=== PATIENT | female | born 1995 | race Caucasian/White ===

== ENCOUNTER → 2020-07-20 14:31 | Outpatient (CLI) | payer BC, SELFPAY ==
[2020-07-20 12:39] VITALS: BMI 31.5
[2020-07-20 15:01] LABS: Absolute Lymphocyte Count 2.34 X10^3/uL (0.83-4.51); Absolute Neutrophil Count 7.1 X10^3/uL (2.0-7.7); Basophil# 0.05 X10^3/uL; Basophil% 0.5 % (0-1); Eosinophil# 0.09 X10^3/uL; Eosinophils% 0.9 % (0-5); Hematocrit 35.8 % (37-47); Hemoglobin 11.7 g/dL (12.0-15.0); Lymphocyte # 2.34 X10^3/ul (4.0); Lymphocyte % 22.5 % (19-41); Mean Corp Hgb Conc 32.7 g/dL (32-36); Mean Corpuscular Hgb 29.4 pg (27.0-32.0); Mean Corpuscular Volume 89.9 fL (81-99); Mean Platelet Vol. 10.3 fl (6.2-12.0); Monocyte# 0.81 X10^3/uL; Monocyte% 7.8 % (0-10); NRBC Flagged by Analyzer 0 % (0-5); Neutrophil # 7.06 X10^3/uL (2.7-7.7); Neutrophil % 67.8 % (47-70); Platelet Count 311 K/mm3 (150-450); RBC Distribution Width CV 13.2 % (11.6-14.6); RBC Distribution Width SD 44.1 fl (35.1-43.9); Red Blood Count 3.98 M/mm3 (4.2-5.4); White Blood Count 10.4 K/mm3 (4.4-11.0)
[2020-07-20 15:24] LABS: NATERA MAILED SPECIMEN
[2020-07-20 16:08] LABS: HIV - WCH Non-Reactive (Nonreactive); Hepatitis B Surface Antigen Non-Reactive (Nonreactive); Hepatitis C Antibody Non-Reactive (Nonreactive)
[2020-07-20 18:13] LABS: Amphetamine Urine VISTA NEGATIVE (<1000 ng/mL); Barbiturate Urine VISTA NEGATIVE (< 200 ng/mL); Benzodiazepine Urine VISTA NEGATIVE (< 200 ng/mL); Cocaine Urine VISTA NEGATIVE (< 300 ng/mL); Ecstacy Urine VISTA NEGATIVE (< 500 ng/mL); Methadone Urine VISTA NEGATIVE (< 300 ng/mL); PCP Urine VISTA NEGATIVE (< 25 ng/mL); THC Urine VISTA NEGATIVE (< 50 ng/mL); Vista UDS pH Range 6
[2020-07-24 06:07] LABS: Chlamydia By Nucleic Acid AMP Negative (Negative)
[2020-07-24 12:05] LABS: Gonococcus By Nucleic Acid AMP Negative (Negative)
[2020-07-26 02:11] LABS: Rapid Plasmin Reagin (RPR) NONREACTIVE (NONREACTIVE)
[2020-07-26 16:57] LABS: HPV Reflexed? NOT INDICATED
== END ==
PROVIDERS: PCP Family Medicine; Visit Provider Obstetrics & Gynecology
DX: Z34.81 Encounter for supervision of other normal pregnancy, first trimester (principal); Z31.430 Encounter of female for testing for genetic disease carrier status for procreative management
CPT/HCPCS: 36415; 80307; 85025; 86592; 86703; 86803; 86850; 86900; 86901; 87086; 87088; 87340; 87491; 87591; 88175; G0145

== ENCOUNTER → 2020-08-01 09:17 | Outpatient (CLI) | payer BC, SELFPAY ==
[2020-07-20 12:39] VITALS: BMI 31.5
== END ==
PROVIDERS: PCP Family Medicine; Visit Provider Family Medicine
DX: Z20.828 Contact with and (suspected) exposure to other viral communicable diseases (principal)
CPT/HCPCS: 87635; U0003

== ENCOUNTER 2020-10-11 11:44 | Outpatient (CLI) | payer BC, SELFPAY ==
[2020-09-26 14:36] VITALS: BMI 31.7
[2020-10-11 12:05] VITALS: BP 130/61; PULSE 80; TEMP 37.1; O2SAT 99
[2020-10-11 12:06] VITALS: BMI 32.6
[2020-10-11 12:19] LABS: Bacteria 0 SEEN /hpf (None Seen); Mucous, Urine 0 SEEN /hpf (<or=2+); Red Blood Cells-Urine 0 SEEN /hpf (0-5); Squamous Epithelial Cells - UA 0 SEEN /hpf (5-10); White Blood Cells 0 SEEN /hpf (0-5)
[2020-10-11 12:32] LABS: Color, Urine Yellow (Yellow); Glucose, Dipstick Normal (Normal); Ketone-Dipstick Negative (Negative); Leukocyte Esterase-Dipstick Negative /ul (Negative); Nitrite-Dipstick Negative (Negative); Occult Blood-Urine Negative /ul (Negative); Protein-Dipstick Negative (Negative); Specific Gravity, Urine 1.015 (1.002-1.030); Urine Bilirubin Dipstick Negative (Negative); Urine Clarity Clear (Clear); Urine Urobilinogen Normal (Normal); Urine pH 6.5 (5.0 - 8.0)
--- NOTE | 2020-10-12 11:50 | OB.TRI.PN ---
Progress Notes Date of Service: 10/11/20 Progress Note: Patient presents for triage evaluation secondary to pelvic cramping. Cervix was closed. No evidence of contractions. UA negative. FHT: Moderate variability reactive, isolated variable decel but FHT reassuring for 22 week gestational age [place]: None Contractions Assessment and plan: reassuring maternal and status patient discharged to home to follow-up at next scheduled visit. See problem list details for additional plan information. Laboratory Studies: Laboratory Tests 10/11/20 Range/Units 12:00 Urine Color Yellow (Yellow) Urine Clarity Clear (Clear) Urine pH 6.5 (5.0 - 8.0) Ur Specific [place] 1.015 (1.002-1.030) Urine Protein Negative (Negative) mg/dl Urine Glucose (UA) Normal (Normal) mg/dl Urine Ketones Negative (Negative) mg/dl Urine Occult Blood Negative (Negative) /ul Urine Nitrite Negative (Negative) Urine Bilirubin Negative (Negative) mg/dL Urine Urobilinogen Normal (Normal) mg/dl Ur Leukocyte Esterase Negative (Negative) /ul Urine RBC 0 SEEN (0-5) /hpf Urine WBC 0 SEEN (0-5) /hpf Ur Squamous Epith Cells 0 SEEN (5-10) /hpf Urine Bacteria 0 SEEN (None Seen) /hpf Urine Mucus 0 SEEN (<or=2+) /hpf - Problem List (1) Round ligament pain Status: Acute Multi Select Codes - Urinary/Genital Urinary/Genital CPT Codes: 38209-73 non-stress test Interp
[2020-10-12 23:16] VITALS: BP 131/77; PULSE 86
== END 2020-10-11 13:15 | disposition home or self-care (01) ==
LOC: WPOUT 11:46 → OBT 11:47
PROVIDERS: PCP Family Medicine; Referring Provider Obstetrics & Gynecology; Visit Provider Obstetrics & Gynecology
DX: O26.892 Other specified pregnancy related conditions, second trimester (principal); R10.2 Pelvic and perineal pain; Z3A.22 22 weeks gestation of pregnancy
CPT/HCPCS: 59025; 59050; 81001; 99218; G0378

== ENCOUNTER → 2020-11-22 12:41 | Outpatient (CLI) | payer BC, SELFPAY ==
[2020-10-25 10:50] VITALS: BMI 32.5
[2020-11-22 13:29] LABS: Absolute Lymphocyte Count 1.93 X10^3/uL (0.83-4.51); Absolute Neutrophil Count 7.4 X10^3/uL (2.0-7.7); Basophil# 0.03 X10^3/uL; Basophil% 0.3 % (0-1); Eosinophil# 0.09 X10^3/uL; Eosinophils% 0.9 % (0-5); Hematocrit 33.4 % (37-47); Hemoglobin 10.5 g/dL (12.0-15.0); Lymphocyte # 1.93 X10^3/ul (4.0); Lymphocyte % 18.6 % (19-41); Mean Corp Hgb Conc 31.4 g/dL (32-36); Mean Corpuscular Hgb 29.1 pg (27.0-32.0); Mean Corpuscular Volume 92.5 fL (81-99); Mean Platelet Vol. 10.3 fl (6.2-12.0); Monocyte# 0.82 X10^3/uL; Monocyte% 7.9 % (0-10); NRBC Flagged by Analyzer 0 % (0-5); Neutrophil # 7.43 X10^3/uL (2.7-7.7); Neutrophil % 71.7 % (47-70); Platelet Count 305 K/mm3 (150-450); RBC Distribution Width CV 14.5 % (11.6-14.6); RBC Distribution Width SD 48.6 fl (35.1-43.9); Red Blood Count 3.61 M/mm3 (4.2-5.4); White Blood Count 10.4 K/mm3 (4.4-11.0)
[2020-11-22 13:49] LABS: Glucose Challenge Gest 1H 50g 94 mg/dL (70-140)
== END ==
PROVIDERS: PCP Family Medicine; Referring Provider Obstetrics & Gynecology; Visit Provider Obstetrics & Gynecology
DX: Z34.00 Encounter for supervision of normal first pregnancy, unspecified trimester (principal)
CPT/HCPCS: 36415; 82950; 85025

== ENCOUNTER → 2021-06-10 11:06 | Outpatient (CLI) | payer BC, SELFPAY ==
[2021-06-10 11:41] LABS: Amphetamine Urine VISTA NEGATIVE (<1000 ng/mL); Barbiturate Urine VISTA NEGATIVE (< 200 ng/mL); Benzodiazepine Urine VISTA NEGATIVE (< 200 ng/mL); Cocaine Urine VISTA NEGATIVE (< 300 ng/mL); Ecstacy Urine VISTA NEGATIVE (< 500 ng/mL); Methadone Urine VISTA NEGATIVE (< 300 ng/mL); PCP Urine VISTA NEGATIVE (< 25 ng/mL); THC Urine VISTA NEGATIVE (< 50 ng/mL); Vista UDS pH Range 6
[2021-06-12 03:08] LABS: Chlamydia By Nucleic Acid AMP Negative (Negative)
[2021-06-12 08:54] LABS: Gonococcus By Nucleic Acid AMP Negative (Negative)
== END ==
PROVIDERS: PCP Family Medicine; Referring Provider Obstetrics & Gynecology; Visit Provider Obstetrics & Gynecology
DX: Z34.90 Encounter for supervision of normal pregnancy, unspecified, unspecified trimester (principal)
CPT/HCPCS: 80307; 87086; 87088; 87491; 87591

== ENCOUNTER → 2021-07-10 09:40 | Outpatient (CLI) | payer BC, SELFPAY ==
[2021-07-10 10:13] LABS: Absolute Lymphocyte Count 1.56 X10^3/uL (0.83-4.51); Absolute Neutrophil Count 5.4 X10^3/uL (2.0-7.7); Basophil# 0.04 X10^3/uL; Basophil% 0.5 % (0-1); Eosinophil# 0.08 X10^3/uL; Hematocrit 36.7 % (37-47); Hemoglobin 11.8 g/dL (12.0-15.0); Lymphocyte # 1.56 X10^3/ul (0.83-4.51); Lymphocyte % 20.4 % (19-41); Mean Corp Hgb Conc 32.2 g/dL (32-36); Mean Platelet Vol. 10.2 fl (6.2-12.0); Monocyte# 0.52 X10^3/uL; Monocyte% 6.8 % (0-10); NRBC Flagged by Analyzer 0 % (0-5); Neutrophil # 5.44 X10^3/uL (2.7-7.7); Platelet Count 311 K/mm3 (150-450); RBC Distribution Width CV 18.6 % (11.6-14.6); RBC Distribution Width SD 57.4 fl (35.1-43.9); Red Blood Count 4.37 M/mm3 (4.2-5.4); White Blood Count 7.7 K/mm3 (4.4-11.0)
[2021-07-10 10:33] LABS: Glucose Challenge Gest 1H 50g 125 mg/dL (70-140)
[2021-07-10 10:48] LABS: NATERA MAILED SPECIMEN
[2021-07-10 13:16] LABS: HIV - WCH Non-Reactive (Nonreactive); Hepatitis B Surface Antigen Non-Reactive (Nonreactive); Hepatitis C Antibody Non-Reactive (Nonreactive); Rubella IgG Equiv (Nonreactive); Syphilis Antibodies Non-reactive
== END ==
LOC: LAB 09:41
PROVIDERS: PCP Family Medicine; Referring Provider Obstetrics & Gynecology; Visit Provider Obstetrics & Gynecology
DX: Z34.90 Encounter for supervision of normal pregnancy, unspecified, unspecified trimester (principal)
CPT/HCPCS: 36415; 82950; 85025; 86703; 86762; 86780; 86803; 86850; 86900; 86901; 87340

== ENCOUNTER 2021-10-23 08:59 | Outpatient (CLI) | payer BC, SELFPAY ==
[2021-10-23 09:24] LABS: Absolute Lymphocyte Count 1.65 X10^3/uL (0.83-4.51); Absolute Neutrophil Count 6.5 X10^3/uL (2.0-7.7); Basophil# 0.03 X10^3/uL; Basophil% 0.3 % (0-1); Eosinophil# 0.11 X10^3/uL; Eosinophils% 1.2 % (0-5); Hematocrit 30.8 % (37-47); Hemoglobin 10.1 g/dL (12.0-15.0); Lymphocyte # 1.65 X10^3/ul (0.83-4.51); Lymphocyte % 18.5 % (19-41); Mean Corp Hgb Conc 32.8 g/dL (32-36); Mean Corpuscular Hgb 27.8 pg (27.0-32.0); Mean Corpuscular Volume 84.8 fL (81-99); Mean Platelet Vol. 10.2 fl (6.2-12.0); Monocyte# 0.55 X10^3/uL; Monocyte% 6.2 % (0-10); NRBC Flagged by Analyzer 0 % (0-5); Neutrophil # 6.53 X10^3/uL (2.7-7.7); Neutrophil % 73.2 % (47-70); Platelet Count 315 K/mm3 (150-450); RBC Distribution Width CV 14.6 % (11.6-14.6); RBC Distribution Width SD 45.2 fl (35.1-43.9); Red Blood Count 3.63 M/mm3 (4.2-5.4); White Blood Count 8.9 K/mm3 (4.4-11.0)
[2021-10-23 09:40] LABS: Glucose Challenge Gest 1H 50g 171 mg/dL (70-140)
== END 2021-10-23 23:59 | disposition short-term general hospital (02) ==
LOC: PAVLAB 09:00
PROVIDERS: PCP Family Medicine; Referring Provider Nurse Practitioner Women's Health; Visit Provider Nurse Practitioner Women's Health
DX: Z13.1 Encounter for screening for diabetes mellitus (principal)
CPT/HCPCS: 36415; 82950; 85025

== ENCOUNTER 2021-10-30 06:47 | Outpatient (CLI) | payer BC, SELFPAY ==
[2021-10-30 07:32] LABS: Glucose GTT-Gestation. Fasting 94 mg/dL (<105)
[2021-10-30 08:34] LABS: Glucose GTT-Gestational 1 Hr 193 mg/dL (<190)
[2021-10-30 09:55] LABS: Glucose GTT-Gestational 2 Hr 140 mg/dL (<165)
[2021-10-30 10:48] LABS: Glucose GTT-Gestational 3 Hr 83 L (<145)
== END 2021-10-30 23:59 | disposition home or self-care (01) ==
PROVIDERS: PCP Family Medicine; Referring Provider Nurse Practitioner Women's Health; Visit Provider Nurse Practitioner Women's Health
DX: Z13.1 Encounter for screening for diabetes mellitus (principal)
CPT/HCPCS: 36415; 82951; 82952

== ENCOUNTER 2021-12-04 12:10 | Outpatient (CLI) | payer BC, SELFPAY ==
--- NOTE | 2021-12-04 12:12 | US_ITS ---
STUDY: SECOND AND THIRD TRIMESTER OBSTETRICAL ULTRASOUND REASON FOR EXAM: Female, 26 years old growth LMP: 04/11/2021 TECHNIQUE: Transabdominal TECHNICAL QUALITY: Adequate. PRIOR ULTRASOUND: None. FINDINGS: There is a single intrauterine fetus. The fetus is in a cephalic presentation. There is demonstrated cardiac activity with a heart rate of 131 bpm. There is a normal amniotic fluid volume. The largest amniotic fluid pocket measures 5.3 cm. The amniotic fluid index (DICK) is 9.4 cm. The placenta is anterior in location and is not low lying. There are Grade 0 placental changes. The cervix measures 3.0 cm in length. The adnexal regions are not visualized. BIOMETRY: BPD: 8.9 cm: 36 weeks, 0 days HC: 32.3 cm: 36 weeks, 3 days AC: 36.2 cm: 40 weeks, 0 days FL: 6.8 cm: 35 weeks, 1 days CI: 81.51% FL/BPD: 76.93% FL/HC: 21.23% FL/AC: 18.92% HC/AC: 0.89 age by current US: 36 weeks, 3 days. GABINO by current US: 12/29/2021. Estimated weight: 3465 grams, +/- 520 grams, 99 %. Age by LMP: 33 weeks, 6 days. GABINO by LMP: 01/16/2022. . US/OB Limited With Biometrics IMPRESSION: Living intrauterine of 36 weeks 3 days as described above. age is discordant. age by LMP of 33 weeks 6 days suggestive of incorrect dates or macrosomia. Electronically Signed: Jayden Quan MD at 18:32 EDT ,
== END 2021-12-04 23:59 | disposition home or self-care (01) ==
PROVIDERS: PCP Family Medicine; Referring Provider Obstetrics & Gynecology; Visit Provider Obstetrics & Gynecology
DX: Z34.93 Encounter for supervision of normal pregnancy, unspecified, third trimester (principal); Z3A.36 36 weeks gestation of pregnancy; Z87.59 Personal history of other complications of pregnancy, childbirth and the puerperium
CPT/HCPCS: 76816

== ENCOUNTER 2021-12-19 13:59 | Outpatient (CLI) | payer BC, SELFPAY | END 2021-12-19 23:59 | disposition home or self-care (01) | LOC: LABSPEC 14:00 | PROVIDERS: PCP Family Medicine; Visit Provider Obstetrics & Gynecology | DX: O09.90 Supervision of high risk pregnancy, unspecified, unspecified trimester (principal); Z3A.00 Weeks of gestation of pregnancy not specified | CPT/HCPCS: 87081 ==

== ENCOUNTER 2022-01-02 09:56 | Outpatient (CLI) | payer BC, SELFPAY ==
--- NOTE | 2022-01-02 09:57 | US_ITS ---
STUDY: SECOND AND THIRD TRIMESTER OBSTETRICAL ULTRASOUND - LIMITED REASON FOR EXAM: Female, 26 years old . growth. LMP: 04/11/2021. PRIOR ULTRASOUND: Comparison is made with prior study dated 12/04/2021. TECHNIQUE: Transabdominal TECHNICAL QUALITY: Adequate. FINDINGS: There is a single intrauterine fetus. The fetus is in a cephalic presentation. There is demonstrated cardiac activity with a heart rate of 134 bpm. There is a normal amniotic fluid volume. The largest amniotic fluid pocket measures 3.9 cm. The amniotic fluid index (DICK) is 9.3 cm. The placenta is anterior in location and is not low lying. There are Grade 3 placental changes. BIOMETRY: BPD: 9.06 cm: 36 weeks, 6 days HC: 34.64 cm: 40 weeks, 2 days AC: 40.72 cm: Not on the chart FL: 7.77 cm: 39 weeks, 6 days Age by LMP: 38 weeks, 0 days. GABINO by LMP: 01/16/2027. age by prior US: 40 weeks, 4 days. GABINO by prior US: 12/29/2021. age by current US: 39 weeks, 0 days. GABINO by current US: 01/09/2022. Estimated weight: 4612 grams, +/- 673 grams, 98 percentile. US/OB Limited With Biometrics IMPRESSION: Single live intrauterine gestation with a mean gestational age of 39 weeks. The measurements obtained today following thin the normal expected range. Electronically Signed: Federico Huynh MD at 12:28 EDT ,
== END 2022-01-02 23:59 | disposition home or self-care (01) ==
LOC: US 09:57
PROVIDERS: PCP Family Medicine; Referring Provider Nurse Practitioner Women's Health; Visit Provider Nurse Practitioner Women's Health
DX: Z87.59 Personal history of other complications of pregnancy, childbirth and the puerperium (principal); Z3A.39 39 weeks gestation of pregnancy
CPT/HCPCS: 76816

== ENCOUNTER 2022-01-10 18:30 | Inpatient (IN) | payer BC, SELFPAY ==
[2022-01-10] VITALS (8 sets, daily range): BP systolic 124–143; BP diastolic 70–86; PULSE 69–82; TEMP 36.3–37; O2SAT 97–98; BMI 36.6
[2022-01-10] MEDS: Lactated Ringers 1,000 ML 50 ML IV (19:25)
[2022-01-10 19:58] LABS: Absolute Neutrophil Count 7.9 X10^3/uL (2.0-7.7); Basophil# 0.02 X10^3/uL; Basophil% 0.2 % (0-1); Eosinophil# 0.08 X10^3/uL; Eosinophils% 0.7 % (0-5); Hematocrit 34.8 % (37-47); Hemoglobin 11.5 g/dL (12.0-15.0); Lymphocyte % 18.2 % (19-41); Mean Corpuscular Hgb 28.8 pg (27.0-32.0); Mean Platelet Vol. 10.6 fl (6.2-12.0); Monocyte# 0.95 X10^3/uL; Monocyte% 8.6 % (0-10); NRBC Flagged by Analyzer 0 % (0-5); Neutrophil # 7.89 X10^3/uL (2.7-7.7); Neutrophil % 71.8 % (47-70); Platelet Count 233 K/mm3 (150-450); RBC Distribution Width CV 18.3 % (11.6-14.6); RBC Distribution Width SD 58.8 fl (35.1-43.9)
[2022-01-10] MEDS: Oxytocin 30 units/NS 500 ml 30 UNITS/500 ML IV.SOLN IV (20:13)
--- NOTE | 2022-01-10 20:32 | HP.PCM.OB_ITS ---
HPI - General General Date of Admission: 01/10/22 HPI Narrative ANDIE PARNELL, is a 26y/o F who presents to L&D for IOL due to h/o loss at term with her last . The child was down syndrome. This has been uneventful. Maternal Data Information GABINO Calculator Estimated Delivery Date Method Current WG Current Estimate 01/16/22 LMP (Certain) 39w 1d PFSH PFS Medical History (Updated 01/10/22 @ 19:58 by Gala Arauz) Abnormal glucose affecting Allergies Anemia Anxiety Depression History of ovarian cyst hemorrhage Home Medications multivitamin no.47-iron fum 27 mg-folate no.1 1 mg-dha 300 mg capsule 2 t ab.chew PO DAILY 07/20/20 [History Last Taken 01/10/22] ferrous sulfate 324 mg (65 mg iron) tablet,delayed release 324 mg PO DAILY 11/06/21 [History Last Taken 01/10/22] buspirone 7.5 mg PO BID 01/10/22 [History Last Taken 01/10/22] magnesium 250 mg PO DAILY 01/10/22 [History Last Taken 01/09/22] potassium 99 mg PO DAILY 01/10/22 [History Last Taken 01/09/22] Allergy/AdvReac Type Severity Reaction Status Date / Time No Known Allergies Allergy Verified 01/08/22 08:49 Family History Mother Bowel disease Mitral valve prolapse Severe allergy Thyroid disorder Sister Asthma Anxiety Depression mental disorders Suicide attempt Father Heart disease Severe allergy Grandmother Asthma Bowel disease Respiratory disease Grandfather Cancer CVA (cerebral vascular accident) Thyroid disorder Uncle Thyroid disorder mental disorders Social History adopted: No household members: family housing: house current occupational status: employed current occupation: [employer] pets and animals: Yes Smoking Status: Never smoker second hand exposure: No alcohol intake: never substance use type: does not use seatbelt use: always do you feel safe at home: Yes additional social history: Saqib- [employer] History 2 Elective abortions Hx Para 1 Spontaneous abortions Hx # Term Pregnancies Ectopic pregnancies Hx # Pregnancies Multiple births # of living children 0 Past Pregnancies Del. Date Name GA/Weeks Outcome Route Bth Weight Gen Labor Lgth Anesthesia Del [place] Provider FOB 02/01/21 Miles 38 still 5lbs 1oz Male none Julia Cerrato Delivery Date: 02/01/21 Down syndrome. No heartbeat/blood flow at office visit. Alison Caballero Visit Details Expected Delivery Route/Plan Labor Preferences- CB/BF classes: encouraged labor support person: Saqib labor intervention preferences: wants to try to deliver in squat position pain management options preferred: nitrous oxide cut cord/dad catch: yes : yes PP control planned: discussed/considering IUD discussed possible routes of delivery and associated risks: [] special requests: [] Plans Covid status: non immune, counseled regarding risk of covid in vs vaccination and considering vaccination Flu vaccine: given Tdap vaccine: given Rhogam: na LARC form signed: yes Problem list reviewed and updated with the most current plan of care details and appropriate orders placed. Relevant counseling for the gestational age provided. Continue routine care and follow up unless otherwise noted in visit notes/problem list details OB Flowsheet Initial Weight: Not Recorded Date -?-?-?-?-?-?-?-?-?-?-?-?- EGA Weight BP Urine Prot -?-?-?-?-?-?-?-?-?-?-?-?- Glucose FHR FuHt Pres Dilation -?-?-?-?-?-?-?-?-?-?-?-?- Effaced St Visit Note 06/10/21 -?-?-?-?-?-?-?-?-?-?-?-?- 8w 4d 182 lb -?-?-?-?-?-?-?-?-?-?-?-?- 170 -?-?-?-?-?-?-?-?-?-?-?-?- SM- CRL cons wit h LMP SM- CRL 2.2cm cons with LMP 07/10/21 -?-?-?-?-?-?-?-?-?-?-?-?- 12w 6d 182 lb 92/60 Negative -?-?-?-?-?-?-?-?-?-?-?-?- Negative 160 -?-?-?-?-?-?-?-?-?-?-?-?- SM- no vb crampi gn had labs today. 08/07/21 -?-?-?-?-?-?-?-?-?-?-?-?- 16w 6d 183 lb 2 oz 110/64 -?-?-?-?-?-?-?-?-?-?-?-?- 160 -?-?-?-?-?-?-?-?-?-?-?-?- MH-tearful, has not felt movement. Reassured early. Brief US to confirm live and active IUP and FHT noted. No VB, LOF. MFM US scheduled. 09/06/21 -?-?-?-?-?-?-?-?-?-?-?-?- 21w 1d 192 lb 110/80 Negative -?-?-?-?-?-?-?-?-?-?-?-?- Negative 150 -?-?-?-?-?-?-?-?-?-?-?-?- SM- no vb lof go od fm no reg ctx 10/04/21 -?-?-?-?-?-?-?-?-?-?-?-?- 25w 1d 195 lb 4 oz 120/70 Nega tive -?-?-?-?-?-?-?-?-?-?-?-?- Negative 143 25 -?-?-?-?-?-?-?-?-?-?-?-?- JV- no lof, vagi nal bleeding, or dec fm. No complaints but has lots of labor questions. Glucola scheduled for the and growth scan with mfm at 30 weeks. 10/23/21 -?-?-?-?-?--?-?-?-?-?-?-?- 27w 6d 198 lb 8 oz 140/60 Nega tive -?-?-?-?-?-?-?-?-?-?-?-?- Negative 158 28 -?-?-?-?-?-?-?-?-?-?-?-?- MH-No VB, LOF. G ood Fm. 28 wk labs, larc, tdap 11/06/21 -?-?-?-?-?-?-?-?-?-?-?-?- 29w 6d 199 lb 120/70 Negative -?-?-?-?-?-?-?-?-?-?-?-?- Negative 147 32 -?-?-?-?-?-?-?-?-?-?-?-?- JV- no lof, vagi nal bleeding, or dec fm. has mfm appt for growth tomorrow. 11/21/21 -?-?-?-?-?-?-?-?-?-?-?-?- 32w 0d 201 lb 120/82 Negative -?-?-?-?-?-?-?-?-?-?-?-?- Negative 145 34 -?-?-?-?-?-?-?-?-?-?-?-?- SM- no vb lof go od fm no regular ctx, discussed starting testing 11/27/21 -?-?-?-?-?-?-?-?-?-?-?-?- 32w 6d 201 lb 124/80 Negative -?-?-?-?-?-?-?-?-?-?-?-?- Negative -?-?-?-?-?-?-?-?-?-?-?-?- 12/04/21 -?-?-?-?-?-?-?-?-?-?-?-?- 33w 6d 201 lb 123/74 Negative -?-?-?-?-?-?-?-?-?-?-?-?- Negative 135 -?-?-?-?-?-?-?-?-?-?-?-?- JV- NST only and reactive today. no concerns. has ultrasound next. 12/11/21 -?-?-?-?-?-?-?-?-?-?-?-?- 34w 6d 203 lb 113/66 Negative -?-?-?-?-?-?-?-?-?-?-?-?- Negative 150 -?-?-?-?-?-?-?-?-?-?-?-?- MH-NST only. Lilly ctive 12/19/21 -?-?-?-?-?-?-?-?-?-?-?-?- 36w 0d 204 lb 2 oz 100/72 Nega tive -?-?-?-?-?-?-?-?-?-?-?-?- Negative 120 37 Cephalic 2 -?-?-?-?-?-?-?-?-?-?-?-?- 80 -2 JV- no lof , vaginal bleeding or dec fm but feels lots of pressure.NST reac tive 12/25/21 -?-?-?-?-?-?-?-?-?-?-?-?- 36w 6d 203 lb 6 oz 128/60 Nega tive -?-?-?-?-?-?-?-?-?-?-?-?- Negative 130 -?-?-?-?-?-?-?-?-?-?-?-?- JV- NST reactive today. plan for 39 week delivery 01/01/22 -?-?-?-?-?-?-?-?-?-?-?-?- 37w 6d 204 lb 2 oz 132/60 Nega tive -?-?-?-?-?-?-?-?-?-?-?-?- Negative 145 38 Cephalic 3 -?-?-?-?-?-?-?-?-?-?-?-?- 80 JV- reac tive nst today. plan for IOL next week on am for pitocin/arom 01/08/22 -?--?-?-?-?-?-?-?-?-?-?-?- 38w 6d 205 lb 8 oz 110/60 Nega tive -?-?-?-?-?-?-?-?-?-?-?-?- Negative 130 39 Cephalic 3 -?-?-?-?-?-?-?-?-?-?-?-?- 80 -2 JV- nst re active, induction on thursday01/10/22 -?-?-?-?-?-?-?-?-?-?-?-?- 39w 1d 207 lb 0.225 oz 143/86 -?-?-?-?-?-?-?-?-?-?-?-?- -?-?--?-?-?-?-?-?-?-?-?-?- ROS Constitutional Constitutional: Denies change in weight, fatigue, fever(s), headache(s), poor appetite or weakness Eyes Eyes: Denies blurry vision, change in vision, seeing flashes or spots in vision ENT HEENT: Denies dizziness, headache(s), loss taste/smell or sore throat Cardiovascular Cardiovascular: Denies chest pain, dizziness, dyspnea, irregular heart rhythm, leg edema, palpitations, rapid heart rate or vomiting Respiratory/Chest Respiratory/Chest: Denies chest tightness, cough, dyspnea or breast pain Gastrointestinal Gastrointestinal: Denies abdominal pain, anorexia, constipation, cramping, diarrhea, hemorrhoids, vomiting or weight changes Genitourinary Genitourinary: Denies dysuria, flank pain, genital lesions, genital pain, urinary frequency or urinary urgency Musculoskeletal Musculoskeletal: Denies back pain, difficulty walking, joint pain, limited range of motion, muscle cramps or numbness Integumentary Integumentary: Denies lesions or unusual bruising Neurologic Neurologic: Denies abnormal movements, abnormal speech, dizziness, numbness, seizure-like activity or syncope Psychiatric Psychiatric: Denies anxiety, behavioral changes, change in appetite, change in libido, cognitive impairment, confusion, depression, difficulty concentrating, hallucinations or suicidal thoughts Endocrine Endocrinology: Denies excessive sweating, polydipsia or polyuria Hematologic/Lymphatic Hematologic/Lymphatic: Denies easy bleeding, easy bruising or lymphadenopathy Allergic/Immunologic Allergic/Immunologic: Denies itchy eyes, lip swelling, seasonal rhinorrhea, rhinitis, throat swelling, tongue swelling, eczemia, wheezing or asthma Vital Signs Vital Signs Vital Signs: 01/10/22 19:46 01/10/22 19:47 01/10/22 19:50 Temperature 97.3 F L Temperature Source Temporal Pulse Rate 82 78 Blood Pressure 143/86 H BP Systolic 143 BP Diastolic 86 Pulse Ox 97 01/10/22 19:55 Temperature Temperature Source Pulse Rate 75 Blood Pressure BP Systolic BP Diastolic Pulse Ox 98 Weight Weight: 207 lb 0.225 oz Body Mass Index (BMI) 36.6 Physical Exam Const alert, oriented x3, no apparent distress and healthy appearing General Appearance: cooperative; Negative for anxious HEENT normocephalic Face and Sinus: normal facial exam Eyes EOMs intact bilaterally and no scleral icterus General Eye: normal appearance of both eyes Neck full ROM and supple Lymph Lymphatic: no lymphadenopathy noted Chest Chest: abnormal inspection of the chest Resp normal respiratory effort Effort and Inspection: able to speak in complete sentences Cardio regular rate GI soft to palpation and non-tender Inspection: gravid Palpation: soft; Negative for tender external exam normal Back/Spine no CVA tenderness Extremity normal to inspection, full ROM and no clubbing, cyanosis or edema General Extremity: Negative for calf tenderness or edema Skin Lesions: no lesions Rashes: no rashes Psych mental status grossly normal Labs Labs Labs: Blood Type A POSITIVE Antibody Screen NEGATIVE Hct 34.8 % (37-47) L Hgb 11.5 g/dL (12.0-15.0) L Obstetrics US Syphilis Total Ab Non-reactive Rubella IgG Antibody Equiv (Nonreactive) Hep Bs Antigen Non-Reactive (Nonreactive) Chlamydia DNA (FALGUNI) Negative (Negative) Neisseria gonorrhoeae DNA (FALGUNI) Negative (Negative) HIV 1&2 Antibody Non-Reactive (Nonreactive) Glucose 1 Hr 50 gm 171 mg/dL (70-140) H Assessment & Plan (1) : QUALIFIERS: Weeks of gestation: 38 weeks Qualified Code(s): Z3A.38 - 38 weeks gestation of COMMENT: declines carrier, NTD at this time. NIPT low risk. nl anatomy. gbs negative (2) Supervision of high risk , antepartum: COMMENT: PRR GABINO: 01/16/22 Girl PC: Foreign (aug) Spouse: Saqib (3) Trisomy 21, child of prior , currently : COMMENT: Foreign (aug) ; growth recommended at 30 weeks, 11/07 growth nl, 12/04 growth 99% (4) Short interval between pregnancies affecting , antepartum: COMMENT: vaginal delivery 01/2021 (5) Rubella non-immune status, antepartum: COMMENT: Equiv, avoidance and plan vaccination (6) Anxiety and depression: COMMENT: buspar for anxiety predominant. zoloft in past. counseling and support group. (7) History of loss: COMMENT: with prev child tri21. plan growth US q 4 weeks, weekly NSTs after 32, and deliver at 39-40. (8) Anemia: COMMENT: add Fe (9) Abnormal glucose affecting : COMMENT: 3 hr GTT nl PLAN: Patient presents IOL, plan management for with pitocin/AROM. Pain management: no plans for epidural or pain meds. GBS negative. Management of any complications: none I have reviewed the [facility] and made any clinically relevant updates.
[2022-01-11] VITALS (54 sets, daily range): BP systolic 99–145; BP diastolic 46–86; PULSE 56–98; RESP 16–22; TEMP 36.1–36.8; O2SAT 89–100
[2022-01-11] MEDS: Lactated Ringers 500 ML 999 ML IV ×3 (02:33→08:41)
[2022-01-11] MEDS: Ondansetron 4 MG/2 ML Vial IV (06:22)
[2022-01-11] MEDS: 0.9% Saline Lock 10 ML Syringe IV (06:22)
--- NOTE | 2022-01-11 07:49 | PN_ITS ---
Progress Note pt is in hands/knees position and plans to deliver this way current tracing: FHT: 140's Moderate variability reactive no decelerations category I tracing [place]: q2 min Contractions cx anterior lip reviewed tracing abnormalities since last note: stable A/P: will attempt to reduce anterior lip due to inability to stop pushing at this ramila e
--- NOTE | 2022-01-11 08:50 | PCM.PN.BLA ---
Progress Note pt has been pushing for over an hour in hands/knees and then moved to supine. Cx starting to swell. pt instructed to stop pushing and I am recommending an epidural and rest. current tracing: FHT: 170's Moderate variability reactive no decelerations category I tracing [place]: q 2 min Contractions anterior lip now extending to right side of . FSE placed for better monitoring while sitting up for epidural reviewed tracing abnormalities since last note: [place]cadia noted A/P: stop pitocin, page anesthesia for epidural placement, rest, and retry pushing when cx completely gone and station is lower.
[2022-01-11] MEDS: Lactated Ringers 1,000 ML 200 ML IV (09:39)
[2022-01-11] MEDS: fentaNYL-bupivacaine (epidural) 100 ML BAG EPIDURAL (09:40)
--- NOTE | 2022-01-11 12:15 | PN_ITS ---
Progress Note pt now has an epidural. she has rested for an hour and pitocin is back on and at 4 mu/min. current tracing: FHT: 150 Mild variability reactive no decelerations category I tracing [place]: q2 min Contractions reviewed tracing abnormalities since last note: variability is now minimal from moderate. A/P: plan for patient to push for an hour and if no progression, plan for cesaran section.
[2022-01-11] MEDS: Sodium Citrate/Citric Acid 30 ML UDC PO (12:35)
[2022-01-11] MEDS: Cefazolin 2 GM in 0.9% Normal Saline 100 ML IV (12:45)
[2022-01-11] MEDS: Lactated Ringers 1,000 ML 999 ML IV (12:45)
[2022-01-11] MEDS: Methylergonovine 0.2 MG/ML Ampul IM (13:06)
[2022-01-11] MEDS: Carboprost Tromethamine 250 MCG/ML Ampul IM ×2 (13:10→17:11)
--- NOTE | 2022-01-11 13:52 | OP.PCM_ITS ---
Maternal Data Information GABINO Calculator Estimated Delivery Date Method Current WG Current Estimate 01/16/22 LMP (Certain) 39w 2d Details Operative Information Date of Procedure: 01/11/22 Pre-Operative Diagnosis: 39 weeks gestation, h/o demise last , failure to descend Post-Operative Diagnosis: 39 weeks gestation, h/o demise last , f ailure to descend Indications Narrative: patient was 9 cm for 3 hours then pushed for 3 hours and asked for a section Classification: ANGELINA Procedure Type: low transverse health sciences program coordinator #1: Skyler Garcia Type of Anesthesia: Epidural Antibiotic Given: Ancef 2 grams IV x1 Estimated Blood Loss: 1000cc Fluids Replaced: 1500cc Findings Description of Procedure: epidural anesthesia was found to be adequate after dosed in the OR. Martinez catheter was found to be adequately inplace. A vaginal prep was performed. The patient was placed in the dorsal supine position with leftward tilt. Patient was prepped and draped in the normal sterile fashion. Pfannenstiel skin incision was made with the scalpel and carried through to the underlying layer of fascia with the scalpel. Fascia was nicked in the midline and the incision extended laterally. The rectus bellies were dissected off superiorly and in feriorly with out complication both sharply and bluntly. The peritoneum was entered digitally. The incision was stretched and a low transverse uterine incision was made with the scalpel. The infant's head was delivered atraumatically followed by the anterior and posterior shoulders without complication the rest of the delivered. The cord was clamped and cut and the infant was handed off to awaiting nurse. The placenta was delivered spontaneously immediately following and was noted to be intact and have a three- vessel cord. The uterus was exteriorized cleared of all clots and debris, and the incision was closed in a double layer closure using #1 vicryl and #1 Monocryl. A small extension was noted on the patient's left side of the uterus down toward cervix and was repaired with a #1 vicryl. The ovaries and fallopian tubes were noted to be within normal limits. The uterus was returned to the maternal abdomen and gutters were cleared of all clots and debris. The peritoneum was closed with 3-0 Monocryl in a running fashion. Gloves were changed prior to fascial closure. Fascia was closed with 0 PDS in a running fashion. Subcutaneous tissue was copiously irrigated and the skin was closed with 3-0 Monocryl in a subcuticular fashion. Mepilex dressing was applied without complication. Patient was taken to recovery in stable condition. It was discussed with the patient that based on the clinical information obtained during this encounter, combined with her history, at this time I would recommend repeat section if the baby is found to be macrosomic again, however if smaller, is not contraindicated for future deliveries if further pregnancies are desired. The female infant was found to be 10 lbs 9 oz Presentation: Positive for Vertex Amniotic Fluid Description: Clear Placental Delivery Description: Manual Removal Placenta Disposition: [facility] Cord Vessel Description: 3 Vessels Cord Entanglement: None Infant A Gender: Female (1 minute): 8 (5 minute): 9 Delayed Cord Clamping: Yes Complications Risks of Surgery Discussed w/Patient: Bleeding, Anesthesia Risks, Infection and Need for Future C-Sections Complications: none Multi Select Codes Urinary/Genital Urinary/Genital CPT Codes: 37355 Delivery [facility]
[2022-01-11] MEDS: Oxytocin 30 units/NS 500 ml 30 UNITS/500 ML IV.SOLN 167 UNITS IV ×2 (14:05→17:11)
[2022-01-11] MEDS: Ketorolac 30 MG/ML Syringe IV ×2 (14:29→20:53)
[2022-01-11] MEDS: Acetaminophen 500 MG Tablet 1000 MG PO ×2 (16:42→23:03)
[2022-01-11 17:15] LABS: Absolute Lymphocyte Count 1.81 X10^3/uL (0.83-4.51); Absolute Neutrophil Count 12.4 X10^3/uL (2.0-7.7); Basophil# 0.04 X10^3/uL; Basophil% 0.3 % (0-1); Eosinophil# 0.01 X10^3/uL; Eosinophils% 0.1 % (0-5); Hematocrit 29.9 % (37-47); Hemoglobin 9.8 g/dL (12.0-15.0); Lymphocyte # 1.81 X10^3/ul (0.83-4.51); Lymphocyte % 11.8 % (19-41); Mean Corp Hgb Conc 32.8 g/dL (32-36); Mean Corpuscular Volume 88.5 fL (81-99); Mean Platelet Vol. 10.6 fl (6.2-12.0); Monocyte# 0.93 X10^3/uL; Monocyte% 6.1 % (0-10); NRBC Flagged by Analyzer 0 % (0-5); Neutrophil # 12.44 X10^3/uL (2.7-7.7); Neutrophil % 81.3 % (47-70); Platelet Count 218 K/mm3 (150-450); RBC Distribution Width SD 58.4 fl (35.1-43.9); Red Blood Count 3.38 M/mm3 (4.2-5.4); White Blood Count 15.3 K/mm3 (4.4-11.0)
[2022-01-11] MEDS: Lactated Ringers 1,000 ML 100 ML IV (20:12)
--- NOTE | 2022-01-11 23:00 | NURSING ---
This RN took pt's epidural catheter out at 2300 - tip intact - pt tolerated well.
[2022-01-11] MEDS: busPIRone 15 MG TABLET 7.5 MG PO (23:03)
[2022-01-12] VITALS (9 sets, daily range): BP systolic 99–115; BP diastolic 44–61; PULSE 70–88; RESP 16–18; TEMP 36.1–36.4; O2SAT 95–97
[2022-01-12] MEDS: Heparin Injection (Vial) 5,000 UNIT/ML VIAL 5000 UNIT SC ×2 (01:06→11:44)
[2022-01-12] MEDS: Ketorolac 30 MG/ML Syringe IV ×2 (02:54→08:31)
[2022-01-12] MEDS: 0.9% Saline Lock 10 ML Syringe IV (02:55)
[2022-01-12] MEDS: Acetaminophen 500 MG Tablet 1000 MG PO ×3 (04:46→17:49)
[2022-01-12 05:23] LABS: Hematocrit 24.7 % (37-47); Hemoglobin 7.9 g/dL (12.0-15.0); Mean Corpuscular Hgb 28.7 pg (27.0-32.0); Mean Corpuscular Volume 89.8 fL (81-99); Mean Platelet Vol. 10.5 fl (6.2-12.0); Platelet Count 172 K/mm3 (150-450); RBC Distribution Width CV 18.2 % (11.6-14.6); RBC Distribution Width SD 59.7 fl (35.1-43.9); Red Blood Count 2.75 M/mm3 (4.2-5.4); White Blood Count 12.5 K/mm3 (4.4-11.0)
--- NOTE | 2022-01-12 07:23 | PCM.PN.OB ---
Subjective Subjective Patient is laying in bed comfortably without complaints. She states that she slept on an off during the night. Lochia is mild and pain is minimal. Objective Data Objective Data Vital Signs: Vital Signs Temp Pulse Resp BP Pulse Ox 97.0 F L 79 16 99/49 L 97 01/12/22 03:55 01/12/22 06:00 01/12/22 06:00 01/12/22 03:55 01/12/22 06:00 Oxygen Delivery Method Room Air Weight: 207 lb 0.225 oz Body Mass Index (BMI) 36.6 Intake & Output: Intake and Output for Last 24 Hours 01/10/22 01/11/22 01/12/22 23:59 23:59 23:59 Intake Total 6.97 / 6.97 5440.27 / 5820.27 380 / 380 Output Total 1450 / 1450 1875 / 1875 Balance 6.97 / 6.97 3990.27 / 4370.27 -1495 / -1495 Lab / Micro Data Result Diagrams: 01/12/22 05:15 Labs: Laboratory Results - last 24 hr 01/11/22 17:10: WBC 15.3 H, RBC 3.38 L, Hgb 9.8 L, Hct 29.9 L, MCV 88.5, MCH 29.0, MCHC 32.8, RDW Std Deviation 58.4 H, RDW Coeff of Rohit 18.0 H, Plt Count 218, MPV 10.6, Immature Gran % (Auto) 0.400, Neut % (Auto) 81.3 H, Lymph % (Auto) 11.8 L, [place] % (Auto) 6.1, Eos % (Auto) 0.1, Baso % (Auto) 0.3, Absolute Neuts (auto) 12.4 H, Absolute Lymphs (auto) 1.81, Nucleated RBC % 0 01/12/22 05:15: WBC 12.5 H, RBC 2.75 L, Hgb 7.9 L, Hct 24.7 L, MCV 89.8, MCH 28.7, MCHC 32.0, RDW Std Deviation 59.7 H, RDW Coeff of Rohit 18.2 H, Plt Count 172, MPV 10.5 Micro: Microbiology 01/10/22 19:30 Nasal Secretion SARS-CoV-2 Antigen (Rapid) - Final ROS Constitutional Constitutional: Reports systems reviewed and no addt'l complaints, except as documented Cardiovascular Cardiovascular: Denies chest pain, dizziness, dyspnea or irregular heart rhythm Respiratory/Chest Respiratory/Chest: Denies cough, pain on inspiration or shortness of breath at rest Gastrointestinal Gastrointestinal: Denies abdominal pain, nausea or vomiting Genitourinary Genitourinary: Denies burning urination Musculoskeletal Musculoskeletal: Denies muscle cramps, muscle spasms or muscle weakness Neurologic Neurologic: Denies confusion, dizziness, headache(s) or lack of coordination Psychiatric Psychiatric: Denies anxiety, behavioral changes or depression Physical Exam HEENT normocephalic Resp normal respiratory effort and normal air movement GI soft to palpation, non-tender and non-distended Rectal Exam: other Other Details: Incision is clean, dry, and intact no CVA tenderness Extremity normal to inspection General Extremity: edema bilateral (trace ) Assessment & Plan (1) Status post section: COMMENT: failure to progress. 10 lb 9 oz bb girl Linda MICHAEL PLAN: s/p LTCS PPD #1 1. routine post care 2. breast feeding- support given 3. rh positive 4. rubella immune 5. will decide later this afternoon if ready for discharge - hg was only 7.9 would like for her to receive an iron transfusion prior to going home.
[2022-01-12] MEDS: Senna/Docusate Sodium 1 Tablet PO (09:09)
[2022-01-12] MEDS: busPIRone 15 MG TABLET 7.5 MG PO ×2 (09:09→21:24)
[2022-01-12] MEDS: Prenatal Vits Tablet 1 TABLET PO (11:44)
[2022-01-12] MEDS: Ibuprofen 600 MG Tablet PO ×2 (15:06→21:23)
--- NOTE | 2022-01-12 20:08 | PCM.DC ---
Discharge Instructions Diet Discharge Diet: No restrictions Activity Discharge Activity: May Not Drive (for 2 weeks or while taking narcotic pain medications.), May Shower and May Take a Tub Bath (in 7 days.) May resume sexual activity in: 4-6 weeks Weight Bearing Status: Full weight bearing Lifting Restrictions: 20 pounds Dressing / Incision Call your doctor if your incision/area has: Continuous Slow Oozing, Sudden Increased Bleeding, Increased Pain/ Swelling, Increased Redness and Foul Smelling Discharge Call your doctor if you observe: Fever of 101 or Higher and Using more than 1 pad per hour Suture Line Care: Avoid Pulling/Pushing and Avoid Pinching/Bending Cleanse incision/area with: Soap & Water and Keep Dressing Clean & Dry Follow Up Care Please Follow Up With: Janessa Crawford DO When: Call [phone] to make an appointment for an incision check in 1-2 weeks. Test Results: Test results from this visit will be discussed in further detail at your follow-up appointment, if applicable. Discharge Plan Admission Admit Date/Time: 01/10/22 18:30 Primary Reason for Your Visit: section Attending Provider: Janessa Crawford Primary Care Provider: Alison Fonseca Discharge Orders/Prescriptions Prescriptions: New ibuprofen 600 mg tablet 600 mg PO Q6H PRN (Reason: pain) 7 Days Qty: 30 RF: 0 oxycodone-acetaminophen [Percocet] 5-325 mg tablet 1 tab PO Q6H PRN (Reason: pain (scale score 7-10)) 7 Days Qty: 30 RF: 0 Continued PNV-DHA 27 mg iron-1 mg -300 mg capsule 2 tab.chew PO DAILY RF: 0 ferrous sulfate 324 mg (65 mg iron) tablet,delayed release (DR/EC) 324 mg PO DAILY RF: 0 potassium 99 mg Tablet 99 mg PO DAILY RF: 0 magnesium 250 mg Tablet 250 mg PO DAILY RF: 0 buspirone 7.5 mg tablet 7.5 mg PO BID RF: 0 Referrals / Follow Up: Alison Fonseca MD [Primary Care Provider] - Disposition Disposition (needs filled in before D/C Order can be placed): Home, Self Care
[2022-01-13] MEDS: Heparin Injection (Vial) 5,000 UNIT/ML VIAL 5000 UNIT SC (00:13)
[2022-01-13] MEDS: Acetaminophen 500 MG Tablet 1000 MG PO ×3 (00:13→10:47)
[2022-01-13 02:20] VITALS: BP 109/58; PULSE 80; RESP 16; TEMP 36.6; O2SAT 97
[2022-01-13] MEDS: Ibuprofen 600 MG Tablet PO ×2 (02:23→08:28)
[2022-01-13] MEDS: 0.9% Saline Lock 10 ML Syringe IV (05:51)
[2022-01-13 05:52] LABS: Absolute Neutrophil Count 7.1 X10^3/uL (2.0-7.7); Basophil# 0.04 X10^3/uL; Basophil% 0.4 % (0-1); Eosinophil# 0.13 X10^3/uL; Eosinophils% 1.2 % (0-5); Hematocrit 22.7 % (37-47); Hemoglobin 7.2 g/dL (12.0-15.0); Lymphocyte % 24.7 % (19-41); Mean Corp Hgb Conc 31.7 g/dL (32-36); Mean Corpuscular Hgb 29.5 pg (27.0-32.0); Mean Platelet Vol. 10.8 fl (6.2-12.0); Monocyte# 0.84 X10^3/uL; Monocyte% 7.7 % (0-10); NRBC Flagged by Analyzer 0 % (0-5); Neutrophil % 64.9 % (47-70); Platelet Count 205 K/mm3 (150-450); RBC Distribution Width CV 18.5 % (11.6-14.6); RBC Distribution Width SD 63.3 fl (35.1-43.9); Red Blood Count 2.44 M/mm3 (4.2-5.4); White Blood Count 10.9 K/mm3 (4.4-11.0)
--- NOTE | 2022-01-13 07:49 | PCM.PN.OB ---
Subjective Subjective Patient doing well without complaints. Tolerating PO. Ambulating and voiding without difficulty. Feeding well/pumping. Denies chest pain, shortness of breath, calf pain/swelling, fevers, chills, lightheadedness. Baby under lights, plans home later today Objective Data Objective Data Vital Signs: Vital Signs Temp Pulse Resp BP Pulse Ox 97.8 F 80 16 109/58 L 97 01/13/22 02:20 01/13/22 02:20 01/13/22 02:20 01/13/22 02:20 01/13/22 02:20 Oxygen Delivery Method Room Air Weight: 207 lb 0.225 oz Body Mass Index (BMI) 36.6 Intake & Output: Intake and Output for Last 24 Hours 01/11/22 01/12/22 01/13/22 23:59 23:59 23:59 Intake Total 5440.27 / 5820.27 490 / 490 Output Total 1450 / 1450 1875 / 1875 Balance 3990.27 / 4370.27 -1385 / -1385 Lab / Micro Data Result Diagrams: 01/13/22 05:45 Labs: Laboratory Results - last 24 hr 01/13/22 05:45: WBC 10.9, RBC 2.44 L, Hgb 7.2 L, Hct 22.7 L, MCV 93.0, MCH 29.5, MCHC 31.7 L, RDW Std Deviation 63.3 H, RDW Coeff of Rohit 18.5 H, Plt Count 205, MPV 10.8, Immature Gran % (Auto) 1.100 H, Neut % (Auto) 64.9, Lymph % (Auto) 24.7, [place] % (Auto) 7.7, Eos % (Auto) 1.2, Baso % (Auto) 0.4, Absolute Neuts (auto) 7.1, Absolute Lymphs (auto) 2.70, Nucleated RBC % 0 Micro: Microbiology 01/10/22 19:30 Nasal Secretion SARS-CoV-2 Antigen (Rapid) - Final Physical Exam Const alert and oriented x3 HEENT normocephalic Eyes PERRL Neck full ROM Resp normal respiratory effort GI soft to palpation GI Narrative: FF below U. Dressing dry and intact Palpation: tender other (appropriately) Assessment & Plan (1) Status post section: COMMENT: failure to progress. 10 lb 9 oz bb girl Linda MICHAEL PLAN: \s/p LTCS PPD # 2 1. routine post care 2. breastpump/ feeding- support given 3. rh positive 4. rubella immune 5. Hgb stable:continue Fe at home 6. discharge today
[2022-01-13 08:21] VITALS: BP 105/67; PULSE 86; RESP 16; TEMP 36.8; O2SAT 98
[2022-01-13] MEDS: Ferrous Sulfate 325 MG Tablet PO (08:28)
[2022-01-13] MEDS: busPIRone 15 MG TABLET 7.5 MG PO (10:47)
[2022-01-13] MEDS: Senna/Docusate Sodium 1 Tablet PO (10:47)
[2022-01-13 13:45] VITALS: BP 107/57; PULSE 70; RESP 16; TEMP 36.1; O2SAT 97
--- NOTE | 2022-01-13 15:24 | CASEMGMT ---
Social Work Assessment Labor and Delivery Unit Patient Address: [facility] [place] [address] [place] [address] Phone number: [phone] Date of Referral: 01/11/2022 Time of Referral: [id number] Referred By: Dr. Lindsey Date of Intervention: 01/13/2022 Time of Intervention: Approximately 1300 Reason for Referral: Maternal history of depression, anxiety, on medication, and history of 38-week demise last year. History obtained from: Medical records and mother of baby (BRIAN) Desire Capps; father of baby (FOB) Zuhair Capps and MOB's mother present for part of conversation. Household composition: BRIAN and FOLucila lives with the FOB's mother and sister. Home situation is reported as safe and adequate. Patient's parent/guardian status: BRIAN is a 26-year-old female, to the FOB. BRIAN denies any type of safety concerns or history of violence in this relationship. BRIAN and FOB have 2 children together: Foreign, born stillborn 02/01/2021 at 38 weeks gestation. [place] baby girl Vilma Capps, born 01/11/2022. Medical History: BRIAN is 2, para 1 now 2 after delivering Vilma. First child was born stillborn and had trisomy 21. MOB with care starting in the first trimester for this and regular thereafter. Delivery via section. Vilma weighed 10 pounds 9 ounces at . With Apgars 8 and 9 at 1 and 5 minutes respectively. Educational Status: BRIAN graduated from high school. No reported issues with reading or writing. Financial Status: BRIAN works at a [employer]. FOLucila works at [employer] on second shift. Infant Supplies: MOB and FOB reported to have all necessary supplies to care for Vilma, including safe sleep space and car seat. MOB is planning to provide breastmilk and formula at this time. Childcare/Caregiver(s): MOB and FOB plan to be primary caregivers. Will have help from various family members as needed. Transportation: No issues reported. Programs/Agencies Involved: No current agency involvement. MOB has expressed interest in applying for WIC. MOB and FOB verbally agreed to a help me grow referral. Behavioral Health Issues: Mental Health History: BRIAN reports history of depression and anxiety. Reports as a minor had an interrupted suicide attempt. MOB's plan was to drown self in the shower. Reports depression had increased due to the loss of a grandparent. Denies any suicidal thoughts, plans, intent or attempts since that time. Reports was prescribed BuSpar throughout the also has a history of Zoloft, and plans to restart this as needed in the timeframe. MOB reports she did have some depression after the of her son Foreign. MOB indicates her daughter as a purpose and reason to live. Substance Use History: Denies any substance use history. Family History: MOB sister with a history of suicide attempt as a teen, depression and anxiety. MOB reports there is a family history of bipolar disorder and schizophrenia but did not disclose who was diagnosed. Drug Screens: Maternal drug screen negative on 06/10/2021. Family/Social Stressors: Infant loss in January 2021. MOB stepfather less than 1 week ago. Support Systems: FOB has 2 weeks off of work to help support MOB at home. Additional support from the MOB's [id number], [id number], and the MOB's mother. Depression/Shaken Baby/Safe Sleeping: Reviewed safe sleeping and shaken baby prevention. Reviewed mood and anxiety disorders, risk factors, and that both mother's and father's can be at risk. Educated MOB to psychosis and increased risk due to family history of bipolar and schizophrenia. ASSESSMENT: Met with MOB, FOB, and MOB's mom in room, introducing to self and social work role. MOB and family receptive to social work visit. Did speak with the MOB alone for completion of depression screening. MOB plans to remain on antidepressant and antianxiety medication in the timeframe. Reports understanding of increased risk, and FOB reports he himself is done some reading on paternal depression. MOB and FOB reported to have good support from family. Reported to have all necessary supplies to care for the infant. MOB's eye contact was good during assessment, affect full, and mood congruent. Observed in the MOB's mother handled the baby appropriately and gently. When the family left the room, the MOB held and attended to the baby in a gentle and loving way. Observed MOB to look at the baby, smile at the baby, and talk to the baby. MOB and FOB excepted a healthy girl referral. Provided resource list for [facility], as well as a packet on mood and anxiety disorders which includes counseling and online supports. No voiced concerns by nursing staff regarding parent-child interactions or bonding. PLAN: MOB and infant to home when ready. Community resource information provided, including counseling resources. Help me grow referral being made. -JAKY Shin, AGRICULTURAL ECONOMICS PROFESSOR *This note was generated with [employer] dictation software. It may contain incorrect words, spelling, and punctuation that were not noted in review of the chart prior to signing*
--- NOTE | 2022-01-13 15:44 | CASEMGMT ---
Social Work Labor and Delivery unit Help me grow referral submitted through the [facility] assisted care web-based referral system. [] No other services requested or indicated. -JOEL Shin, SERVICE MECHANIC. *This note was generated with [employer] dictation software. It may contain incorrect words, spelling, and punctuation that were not noted in review of the chart prior to signing*
--- NOTE | 2022-01-14 10:32 | DS.PCM_ITS ---
Providers Date of Admission: 01/10/22 Primary Care Physician: Dr. Alison Fonseca MD Reason For Visit: PRIMARY C SECTION Diagnosis Discharge Diagnosis (1) Status post section: Status: Acute Code(s): Z98.891 - History of uterine scar from previous surgery Medications at Discharge Home Medications multivitamin no.47-iron fum 27 mg-folate no.1 1 mg-dha 300 mg capsule 2 tab.chew PO DAILY 07/20/20 ferrous sulfate 324 mg (65 mg iron) tablet,delayed release 324 mg PO DAILY 11/06/21 buspirone 7.5 mg PO BID 01/10/22 magnesium 250 mg PO DAILY 01/10/22 potassium 99 mg PO DAILY 01/10/22 ibuprofen 600 mg PO Q6H PRN 7 Days #30 tab 01/12/22 oxycodone-acetaminophen [Percocet] 1 tab PO Q6H PRN 7 Days #30 tab 01/12/22 Hospital Course Operations section Summary of Care Provided Hospital Course: Patient underwent section with routine recovery, return of normal bowel and bladder function. Ambulating, voiding and tolerating PO. Stable for discharge home POD #3. Weight / BMI Weight Weight: 207 lb 0.225 oz Body Mass Index (BMI) 36.6 ABG / Lab / Microbiology Data Result Diagrams: 01/13/22 05:45 Microbiology: Microbiology 01/10/22 19:30 Nasal Secretion SARS-CoV-2 Antigen (Rapid) - Final D/C Instructions Discharge Diet: No restrictions May resume sexual activity in: 4-6 weeks Weight Bearing Status: Full weight bearing Call your doctor if your incision/area has: Continuous Slow Oozing, Sudden Increased Bleeding, Increased Pain/ Swelling, Increased Redness and Foul Smelli ng Discharge Call your doctor if you observe: Fever of 101 or Higher and Using more than 1 pad per hour Suture Line Care: Avoid Pulling/Pushing and Avoid Pinching/Bending Cleanse incision/area with: Soap & Water and Keep Dressing Clean & Dry Please Follow Up With: Janessa Crawford DO When: Call [phone] to make an appointment for an incision check in 1-2 weeks. Meaningful Use Info Meaningful Use Diagnoses (Choose all that apply): None applicable Discharge Plan Admission Admit Date/Time: 01/10/22 18:30 Primary Reason for Your Visit: section Attending Provider: Janessa Crawford Primary Care Provider: Alison Fonseca Instructions Patient Instructions: After a Discharge Orders/Prescriptions Prescriptions: New ibuprofen 600 mg tablet 600 mg PO Q6H PRN (Reason: pain) 7 Days Qty: 30 RF: 0 oxycodone-acetaminophen [Percocet] 5-325 mg tablet 1 tab PO Q6H PRN (Reason: pain (scale score 7-10)) 7 Days Qty: 30 RF: 0 Continued PNV-DHA 27 mg iron-1 mg -300 mg capsule 2 tab.chew PO DAILY RF: 0 ferrous sulfate 324 mg (65 mg iron) tablet,delayed release (DR/EC) 324 mg PO DAILY RF: 0 potassium 99 mg Tablet 99 mg PO DAILY RF: 0 magnesium 250 mg Tablet 250 mg PO DAILY RF: 0 buspirone 7.5 mg tablet 7.5 mg PO BID RF: 0 Referrals / Follow Up: Alison Fonseca MD [Primary Care Provider] - Disposition Disposition (needs filled in before D/C Order can be placed): Home, Self Care
== END 2022-01-13 14:30 | disposition home or self-care (01) | DRG 788 ==
PROVIDERS: Admitting Provider Obstetrics & Gynecology; PCP Family Medicine; Visit Provider Obstetrics & Gynecology
DX: O75.81 Maternal exhaustion complicating labor and delivery (principal); D64.9 Anemia, unspecified; F41.9 Anxiety disorder, unspecified; F32.A Depression, unspecified; O99.344 Other mental disorders complicating childbirth; Z3A.39 39 weeks gestation of pregnancy; Z37.0 Single live birth; O99.02 Anemia complicating childbirth; Z87.59 Personal history of other complications of pregnancy, childbirth and the puerperium; Z28.310 Unvaccinated for COVID-19; Z87.42 Personal history of other diseases of the female genital tract
CPT/HCPCS: 59025; 59050; 85025; 85027; 86850; 86900; 86901; 87426; 99218; J1756; J7120; A4216; G0378; J2405; J3490

== ENCOUNTER → 2022-03-25 | Outpatient (CLI) | payer BC, SELFPAY ==
--- NOTE | 2022-03-25 13:58 | US_ITS ---
STUDY: ULTRASOUND OF THE FEMALE PELVIS - COMPLETE REASON FOR EXAM: Female, 26 years old. Pelvic pain LMP: 03/10/2022. TECHNIQUE: Transabdominal and Transvaginal TECHNICAL QUALITY: Adequate. COMPARISON: None. FINDINGS: The uterus is anteverted and is in a midline position. The uterus measures 8 cm x 5.3 cm x 3.4 cm. Normal uterine cervix. The endometrium measures 2.5 mm in thickness, and is hyperechoic. There is no demonstrated endometrial mass. There is no demonstrated myometrial mass. I.U.D. - The patient does have an I.U.D. . It is in the fundal portion of the uterus. The right ovary is visualized. The right ovary measures 2.8 cm x 2 cm x 1.8 cm. There is no right ovarian cyst or ovarian mass. There is no visualized right adnexal mass or complex lesion. There is normal arterial and normal venous vascularity. The left ovary is visualized. The left ovary measures 2.1 cm x 1.4 cm x 1.7 cm. There is no left ovarian cyst or ovarian mass. There is no visualized left adnexal mass or complex lesion. There is normal arterial and normal venous vascularity. There is minimal fluid in the cul-de-sac. The pre void volume of the bladder was 487 ml. US/Pelvic (Non ) IMPRESSION: IUD seen within the fundal portion of the uterus. Electronically Signed: Federico Huynh MD at 15:43 EDT ,
--- NOTE | 2022-03-25 13:58 | US_ITS ---
STUDY: ULTRASOUND OF THE FEMALE PELVIS - COMPLETE REASON FOR EXAM: Female, 26 years old. Pelvic pain LMP: 03/10/2022. TECHNIQUE: Transabdominal and Transvaginal TECHNICAL QUALITY: Adequate. COMPARISON: None. FINDINGS: The uterus is anteverted and is in a midline position. The uterus measures 8 cm x 5.3 cm x 3.4 cm. Normal uterine cervix. The endometrium measures 2.5 mm in thickness, and is hyperechoic. There is no demonstrated endometrial mass. There is no demonstrated myometrial mass. I.U.D. - The patient does have an I.U.D. . It is in the fundal portion of the uterus. The right ovary is visualized. The right ovary measures 2.8 cm x 2 cm x 1.8 cm. There is no right ovarian cyst or ovarian mass. There is no visualized right adnexal mass or complex lesion. There is normal arterial and normal venous vascularity. The left ovary is visualized. The left ovary measures 2.1 cm x 1.4 cm x 1.7 cm. There is no left ovarian cyst or ovarian mass. There is no visualized left adnexal mass or complex lesion. There is normal arterial and normal venous vascularity. There is minimal fluid in the cul-de-sac. The pre void volume of the bladder was 487 ml. US/Transvaginal Non- IMPRESSION: IUD seen within the fundal portion of the uterus. Electronically Signed: Federico Huynh MD at 15:43 EDT ,
== END | disposition home or self-care (01) ==
LOC: OPUS 13:56
PROVIDERS: PCP Family Medicine; Visit Provider Obstetrics & Gynecology
DX: R10.2 Pelvic and perineal pain (principal)
CPT/HCPCS: 76830; 76856; 93976

== ENCOUNTER → 2023-04-01 | Outpatient (CLI) | payer OTHER, SELFPAY ==
[2023-04-06 15:15] LABS: HPV Reflexed? NOT INDICATED
== END | disposition home or self-care (01) ==
LOC: LABSPEC 16:07
PROVIDERS: PCP Family Medicine; Referring Provider Nurse Practitioner Women's Health; Visit Provider Nurse Practitioner Women's Health
DX: Z12.4 Encounter for screening for malignant neoplasm of cervix (principal)
CPT/HCPCS: 88175; G0145

== ENCOUNTER → 2025-04-07 | Outpatient (CLI) | payer OTHER, SELFPAY | END | disposition home or self-care (01) | LOC: LABSPEC 16:27 | PROVIDERS: PCP Family Medicine; Visit Provider Obstetrics & Gynecology | DX: R10.2 Pelvic and perineal pain (principal); R39.15 Urgency of urination | CPT/HCPCS: 87086; 87088 ==